=== PATIENT | male | born 1985 | race Caucasian/White ===

== ENCOUNTER 2022-05-24 08:18 | Observation (INO) | payer OTHER ==
[2022-05-24 09:08] LABS: ALT (SGPT) 66 U/L (8-55); AST (SGOT) 27 U/L (5-34); Albumin 4.3 g/dL (3.5-5.0); Alkaline Phosphatase 108 U/L (40-110); Anion Gap 18 mmol/L (10-20); BUN (Urea Nitrogen) 7 mg/dL (8.9-20.6); Bilirubin, Total 1.9 mg/dL (0.2-1.2); Calc. Creatinine Clearance 0 mL/min (70-130); Calcium 9.5 mg/dL (7.8-10.44); Carbon Dioxide 22 mmol/L (22-29); Chloride 100 mmol/L (98-107); Estimated GFR 93; Globulin 3.3 g/dL (2.4-3.5); Glucose 275 mg/dL (70-105); Magnesium 1.8 mg/dL (1.6-2.6); Potassium 3.8 mmol/L (3.5-5.1); Protein, Total 7.6 g/dL (6.0-8.3); Sodium 136 mmol/L (136-145)
[2022-05-24 09:16] LABS: #Basophils 0.1 10x3/uL (0.0-0.2); #Eosinphils 0.1 10x3/uL (0.0-0.5); #Monocytes 0.7 10x3/uL (0.0-1.1); %Eosinophils 1.5 % (0.0-6.0); %Lymphocytes 25.5 % (18.0-47.0); %Monocytes 7.8 % (0.0-10.0); %Neutrophils 62.4 % (40.0-75.0); Hemoglobin 16.4 g/dL (13.5-17.5); Mean Corpuscular Hemoglobin 30.2 pg (27.0-33.0); Mean Corpuscular Volume 86.2 fl (81.2-95.1); Mean Platelet Volume 11.6 fl (7.4-10.4); Platelet Count 234 10x3/uL (150-450); RBC Distribution Width 11.9 % (11.5-14.5); Red Blood Cell (RBC) Count 5.43 10x6/uL (4.32-5.72); White Blood Cell (WBC) Count 9.5 10x3/uL (3.5-10.5)
[2022-05-24] MEDS ORDERED: Calcium Carbonate 500 MG ChewTAB PO PRN (10:36)
[2022-05-24] MEDS ORDERED: Senokot S 8.6-50 MG TAB PO PRN (10:36)
[2022-05-24] MEDS ORDERED: HYDROcodone/Acetaminophen 5/325 mg Tablet PO PRN (10:36)
[2022-05-24] MEDS ORDERED: Acetaminophen 325 MG TAB PO PRN (10:36)
[2022-05-24] MEDS ORDERED: Ondansetron PF 4 MG/2 ML Vial IVP PRN (10:36)
[2022-05-24] MEDS ORDERED: Dextrose 5% in Water 1,000 ML IV PRN (10:39)
[2022-05-24] MEDS ORDERED: Dextrose 50% Abboject 50 ML SYRINGE SLOW IVP PRN (10:39)
[2022-05-24] MEDS ORDERED: Metoprolol Tartrate 25 MG TAB ONE (11:01)
[2022-05-24] MEDS: HumaLOG 300 UNITS/3 ML VIAL SC PRN ×3 (12:20→22:33)
[2022-05-24 13:39] VITALS: BMI 44.9
[2022-05-24] MEDS ORDERED: FLU VACC QS2022-23(6MO UP)/PF 60 MCG/0.5 ML SYRINGE IM ONE (14:00)
[2022-05-24 20:46] LABS: Hemoglobin A1c 10.1 % (4.0-6.0)
[2022-05-25 05:57] LABS: #Basophils 0.1 10x3/uL (0.0-0.2); #Eosinphils 0.2 10x3/uL (0.0-0.5); #Monocytes 0.7 10x3/uL (0.0-1.1); #Neutrophils 4.8 10x3/uL (1.5-8.4); %Basophils 0.9 % (0.0-2.0); %Eosinophils 1.9 % (0.0-6.0); %Lymphocytes 30.2 % (18.0-47.0); %Monocytes 8.8 % (0.0-10.0); %Neutrophils 56.7 % (40.0-75.0); Hemoglobin 14.1 g/dL (13.5-17.5); Mean Corpuscular HGB CONC 34.6 g/dL (32.0-36.0); Mean Corpuscular Hemoglobin 30.2 pg (27.0-33.0); Mean Corpuscular Volume 87.4 fl (81.2-95.1); Mean Platelet Volume 11.2 fl (7.4-10.4); Platelet Count 192 10x3/uL (150-450); Red Blood Cell (RBC) Count 4.67 10x6/uL (4.32-5.72); White Blood Cell (WBC) Count 8.5 10x3/uL (3.5-10.5)
[2022-05-25 06:12] LABS: Anion Gap 15 mmol/L (10-20); BUN (Urea Nitrogen) 10 mg/dL (8.9-20.6); Calc. Creatinine Clearance 272 mL/min (70-130); Calcium 8.8 mg/dL (7.8-10.44); Carbon Dioxide 22 mmol/L (22-29); Chloride 105 mmol/L (98-107); Cholesterol 191 mg/dl (< 200 Desired); Estimated GFR 116; Glucose 212 mg/dL (70-105); HDL Cholesterol 32 mg/dL (>60 Neg Risk); LDL Cholesterol, Calculated 113 mg/dL; Potassium 3.8 mmol/L (3.5-5.1); Sodium 138 mmol/L (136-145); Triglycerides 231 mg/dL (Less than 150)
[2022-05-25 12:01] VITALS: BP 114/80; TEMP 98.5
== END 2022-05-25 15:45 | disposition home or self-care (01) ==
LOC: CSHERS 08:18 → CSHERHOLD 11:57 → CSHTELE 12:54
PROVIDERS: ADMIT Family Medicine; ATTEND Hospitalist
DX: I49.3 Ventricular premature depolarization (principal); E11.9 Type 2 diabetes mellitus without complications; R00.2 Palpitations; E66.01 Morbid (severe) obesity due to excess calories; G47.33 Obstructive sleep apnea (adult) (pediatric); E78.5 Hyperlipidemia, unspecified; Z79.899 Other long term (current) drug therapy; Z86.16 Personal history of COVID-19; Z90.49 Acquired absence of other specified parts of digestive tract; Z88.2 Allergy status to sulfonamides; Z68.41 Body mass index [BMI] 40.0-44.9, adult
CPT/HCPCS: 36415; 36416; 71045; 80048; 80053; 80061; 83036; 83735; 83880; 84443; 84484; 85025; 85379; 90471; 90686; 93005; 96360; G0008; G0378; J1815